=== PATIENT | female | born 1980 | race Caucasian/White ===

== ENCOUNTER 2016-06-14 11:21 | Emergency (ER) | payer OTHER ==
[~2016-06-14 11:21] MED LIST: LORTAB 10-5001 EACH PO; NAPROSYN500 MG PO; NAPROXEN PO; PREDNISONE PO; PRENATAL MULITV1 TAB PO; ROBAXIN500 MG PO; SKELAXIN PO; SUDAFED30 M1 PO
[2016-06-14 12:17] LABS: URINE SOURCE CLEAN CATCH
[2016-06-14 12:23] LABS: URINE APPEARANCE CLOUDY; URINE BILIRUBIN NEG (NEG); URINE BLOOD TRACE (NEG); URINE COLOR YELLOW; URINE GLUCOSE NEG (NEG); URINE KETONE NEG (NEG); URINE LEUKOCYTE ESTERASE 3+ (NEG); URINE NITRATE POS (NEG); URINE PH 5.5 (5-8); URINE PROTEIN NEG (NEG); URINE UROBILINOGEN 0.2 MG/DL (NEG)
[2016-06-14 12:26] LABS: CULTURE INDICATED? YES; URINE BACTERIA AUWI 4+ (NEGATIVE); URINE SQUAMOUS EPITHELIAL CELL OCC /[HPF]; UWBCS1 AUWI 200-300 (0-5)
[2016-06-16 07:22] LABS: CHLAMYDIA TRACH Not Detected (Not Detected); N GONOR Not Detected (Not Detected)
== END 2016-06-14 13:25 | disposition home or self-care (01) ==
LOC: CED 11:21 → CFTX 11:21
PROVIDERS: Nurse Practitioner Family
DX: N39.0 Urinary tract infection, site not specified (principal); J45.909 Unspecified asthma, uncomplicated; F17.200 Nicotine dependence, unspecified, uncomplicated; Z98.51 Tubal ligation status; Z98.890 Other specified postprocedural states; Z87.440 Personal history of urinary (tract) infections
CPT/HCPCS: 81003; 84703; 87086; 87088; 87186; 87491; 87591; 87808; 87905; 99284; J0696